=== PATIENT | female | born 1990 | race Caucasian/White ===

== ENCOUNTER 2020-06-20 17:51 | Emergency (ER) | payer OTHER ==
[~2020-06-20] VITALS: Ht 162.6 cm; Wt 55.3 kg
[2020-06-20 18:05] VITALS: Ht 162.6 cm; Wt 55.3 kg
[2020-06-20 20:21] VITALS: BP 111/71
== END 2020-06-20 20:21 | disposition home or self-care (01) ==
LOC: ED 17:51
DX: Z20.89 Contact with and (suspected) exposure to other communicable diseases (principal)